=== PATIENT | female | born 1940 | race African-American/Black ===

== ENCOUNTER 2021-08-16 11:49 | Emergency (ER) | payer OTHER ==
[~2021-08-16] VITALS: Ht 170.2 cm; Wt 95.0 kg
[2021-08-16] MEDS ORDERED: ACETAMINOPHEN WITH CODEINE 300/30MG TABLET PO ONE (12:45)
[2021-08-16] MEDS ORDERED: ONDANSETRON 4MG ODT PO ONE (13:00)
[2021-08-16 15:00] VITALS: BP 129/88
[2021-08-16] MEDS ORDERED: TRAM50TA3 MT (15:01)
== END 2021-08-16 15:10 | disposition home or self-care (01) ==
LOC: ER 11:49
DX: S49.81XA Other specified injuries of right shoulder and upper arm, initial encounter (principal); M25.531 Pain in right wrist; M25.521 Pain in right elbow; V48.4XXA Person boarding or alighting a car injured in noncollision transport accident, initial encounter; Y93.89 Activity, other specified; Y92.480 Sidewalk as the place of occurrence of the external cause
CPT/HCPCS: 73030; 73070; 99284; Q0162